=== PATIENT | female | born 1995 | race Caucasian/White ===

== ENCOUNTER 2024-01-18 09:19 | Emergency (ER) | payer SELFPAY ==
[2024-01-18 10:19] VITALS: BP 157/90; PULSE 101; RESP 18; TEMP 36.8; O2SAT 98; BMI 35.3
[2024-01-18 10:25] LABS: Basophils % 0.4 %; Eosinophils # 0.1 10^3/uL (0.0-0.8); Eosinophils % 1.3 %; Hematocrit 40.4 % (36-47); Lymphocytes # 2.4 10^3/uL (0.8-4.8); Lymphocytes % 23.7 %; Mean Corpuscular HGB Conc 33.2 g/dL (30-55); Mean Corpuscular Hemoglobin 28.7 pg (27-33); Mean Corpuscular Volume 86.5 fl (85-98); Mean Platelet Volume 10.3 fL (7.4-10.4); Monocytes # 0.7 10^3/uL (0.2-0.9); Monocytes % 6.5 %; Neutrophils # 6.75 10^3/uL (1.8-7.7); Neutrophils % 67.7 %; Nucleated Red Blood Cells % 0 %; Platelet Count 268 10^3/cmm (157-399); Red Blood Count 4.67 10^6/uL (3.85-5.65); Red Cell Distribution Width 11.9 % (12.1-15.1); White Blood Count 9.97 10^3/uL (3.29-11.43)
[2024-01-18 10:47] LABS: Albumin Level 4.3 g/dL (3.5-5.2); Alkaline Phosphatase 71 U/L (35-105); Blood Urea Nitrogen 10 mg/dL (6-20); Calcium 9.4 mg/dL (8.5-10.5); Carbon Dioxide 23 mmol/L (22-29); Chloride 100 mmol/L (98-107); Creatinine Clr Calc Pharmacy 142.1304; Globulin 3.5 g/dL (1.3-4.6); Glomerular Filtration Rate 118.2 mL/min (90-130); Glucose 130 mg/dL (65-115); Osmolality Calculated 287 mOsm/kg (285-295); Sodium 138 mmol/L (136-145); Total Bilirubin 0.4 mg/dL (0.15-1.2); Total Protein 7.8 g/dL (6.6-8.7)
[2024-01-18 11:06] LABS: Alanine Aminotransferase 30 U/L (0-33); Anion Gap 19.2 (5-19); Aspartate Amino Transferase 33 U/L (0-32); Potassium 4.2 mmol/L (3.5-5.1)
--- NOTE | 2024-01-18 12:35 | XRR_ITS ---
PROCEDURE INFORMATION: Exam: XR Left Shoulder Exam date and time: 01/18/2024 12:53 PM Age: 29 years old Clinical indication: Pain; Shoulder; Patient HX: No known trauma TECHNIQUE: Imaging protocol: Radiologic exam of the left shoulder. Views: 2 or more views. COMPARISON: No relevant prior studies available. FINDINGS: Bones/joints: No significant narrowing of the glenohumeral joint space. There is glenohumeral subchondral sclerosis without significant osteophyte formation. There is no narrowing of the acromiohumeral interval. No acute fracture or subluxation. Mild calcific tendinosis around the biceps tendon. Soft tissues: Normal. XR/XR shoulder LT min 2V* [id number] IMPRESSION: 1. No acute fracture or subluxation of the left shoulder of the left shoulder. 2. Mild calcific tendinosis around the biceps tendon of the left shoulder.
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
[2024-01-18 13:18] VITALS: BP 142/96; PULSE 96; RESP 16; O2SAT 98
[2024-01-18 13:23] VITALS: BP 142/96; PULSE 96; RESP 16; TEMP 36.8; O2SAT 98
--- NOTE | 2024-01-19 09:40 | DCPLANNER ---
messaged ortho for er f/u
== END 2024-01-18 13:32 | disposition home or self-care (01) ==
PROVIDERS: Family Medicine; Emergency Provider Physician Assistant
DX: M75.32 Calcific tendinitis of left shoulder (principal)
CPT/HCPCS: 36415; 73030; 80053; 85025; 99284

== ENCOUNTER → 2024-01-26 13:47 | Outpatient (BNVA) | payer SELFPAY | PROVIDERS: Referring Provider Physician Assistant; Visit Provider Orthopaedic Surgery | DX: S49.92XA Unspecified injury of left shoulder and upper arm, initial encounter (principal); X58.XXXA Exposure to other specified factors, initial encounter; M75.32 Calcific tendinitis of left shoulder | CPT/HCPCS: 73030 ==